=== PATIENT | female | born 1980 | race Caucasian/White ===

== ENCOUNTER 2021-07-28 08:18 | Outpatient (CLI) | payer OTHER, BC, SELFPAY ==
--- NOTE | ~2021-07-28 | MM_ITS ---
EXAMINATION: MM scrn [place] implant BI w je HISTORY: Screening mammogram TECHNIQUE: Craniocaudal and mediolateral oblique 3-D tomosynthesis images with implant displacement a nd synthetic 2-D images were generated. Craniocaudal and mediolateral oblique views of the breasts wi thout implant displacement were obtained using full field digital mammography. CAD analysis was submi tted and interpreted. COMPARISON: No prior mammogram is available for comparison at this institution. BREAST PARENCHYMAL COMPOSITION: There are scattered areas of fibroglandular density. FINDINGS: There is no evidence of suspicious mass, calcification, or architectural distortion to sugg est malignancy in either breast. There has been no suspicious interval change. IMPRESSION: 1. No mammographic evidence of malignancy. 2. Recommend routine screening mammography in one year. BI-RADS Category 1: Negative Reviewed, dictated and finalized at location A. Y LEVEL TRUCK DRIVER
== END 2021-07-28 08:19 | disposition home or self-care (01) ==
PROVIDERS: PCP Family Medicine; Visit Provider Obstetrics & Gynecology
DX: Z12.31 Encounter for screening mammogram for malignant neoplasm of breast (principal)
CPT/HCPCS: 77063; 77067

== ENCOUNTER 2022-04-01 15:09 | Outpatient (NON) | payer OTHER, BC, SELFPAY ==
[2022-04-01 15:49] LABS: IFOB Positive Control Positive; Immunochemical Fecal Occult Bl Negative (N)
== END 2022-04-01 15:10 | disposition home or self-care (01) ==
PROVIDERS: PCP Family Medicine; Visit Provider Family Medicine
DX: Z12.11 Encounter for screening for malignant neoplasm of colon (principal)
CPT/HCPCS: 82274

== ENCOUNTER 2022-06-26 10:30 | Emergency (ER) | payer OTHER, BC, SELFPAY ==
[2022-06-26 10:55] VITALS: BP 119/80; PULSE 89; RESP 16; TEMP 36.7; O2SAT 100
--- NOTE | 2022-06-26 11:56 | ED.URI ---
HPI - URI/Sore Throat General Chief Complaint: Upper Respiratory Infection Stated Complaint: cough,richard,chest tightness,fever Time Seen by Provider: 06/26/22 11:56 Source: patient and RN notes reviewed Mode of arrival: ambulatory Limitations: no limitations History of Present Illness MD elicited complaint: cough and nasal congestion Related Data Home Medications Medication Instructions Recorded Confirmed metformin 500 mg tablet,extended 500 mg PO BID 03/24/22 06/26/22 release 24hr spironolactone 50 mg tablet 50 mg PO DAILY 03/24/22 06/26/22 clindamycin phosphate 1 % topical 1 applic topical DIRECTED 06/26/22 06/26/22 solution metoprolol succinate 25 mg 25 mg PO DAILY 06/26/22 06/26/22 tablet,extended release 24 hr Allergies Allergy/AdvReac Type Severity Reaction Status Date / Time cefadroxil Allergy Severe Hives Verified 06/26/22 11:51 sulfamethoxazole Allergy Intermediate HIVES Verified 06/26/22 11:51 trimethoprim Allergy Intermediate HIVES Verified 06/26/22 11:51 Review of Systems Review of Systems: CONSTITUTIONAL: Reports malaise, chills, sweats, or fever. EYES: Denies visual changes, redness, or discharge. ENT: Reports rhinorrhea, congestion, sinus pain. Denies otalgia and sore throat. CARDIOVASCULAR: Denies chest pain, palpitations, or edema. RESPIRATORY: Reports cough. Denies dyspnea. GASTROINTESTINAL: Denies abdominal pain, nausea, vomiting, diarrhea SKIN: Denies rash or itching. MUSCULOSKELETAL: Reports myalgia. NEUROLOGIC: Denies headache. 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 no fibrosis. Family History Family History Father Carcinoma of colon Mother Family history of malignant neoplasm of breast in first degree relative Social History Social History Smoking status: Never smoker Alcohol intake: current Comments At time of signature, agree with nursing past medical, surgical, social and family history. There is no relevant family history pertinent to the presenting complaint Exam Narrative: GENERAL: Well-appearing, well-nourished, and in no acute distress. HEAD: Normocephalic EYES: PERRLA, conjunctivae clear ENT: Nares clear, turbinates edematous and erythematous, clear discharge. Mucous membranes moist. TM pearly triana with dull light reflex bilaterally; no tragal tenderness. Oropharynx not erythematous without lesions. Tonsils not enlarged and without exudate, no drooling, no hoarseness, no trismus, uvula midline. NECK: Supple. No lymphadenopathy CHEST: Clear to auscultation, breath diminished in the bases. No wheezing, rhonchi, rales, or stridor. No respiratory distress, speaks in full sentences. HEART: Regular rate and rhythm. No murmur heard. SKIN: Warm, dry, no rash. NEURO: Alert and oriented x3. PSYCH: Normal mood and affect Course Course Emergency Course: Patient is aware of diagnosis, understands and agrees to treatment plan. Anticipatory guidance given. Patient agrees to follow-up as directed and is aware of reasons to seek care at the emergency department. Portions of this record may have been created with voice recognition software Level of Care: Express Care Visit Vital Signs Vital signs: Vital Signs Temperature 98.1 F 06/26/22 10:55 Pulse Rate 89 06/26/22 10:55 Respirat
== END 2022-06-26 12:14 | disposition home or self-care (01) ==
PROVIDERS: Emergency Provider Nurse Practitioner; PCP Family Medicine
DX: J10.1 Influenza due to other identified influenza virus with other respiratory manifestations (principal); R06.89 Other abnormalities of breathing; E66.9 Obesity, unspecified; Z68.32 Body mass index [BMI] 32.0-32.9, adult; G47.33 Obstructive sleep apnea (adult) (pediatric); Z96.642 Presence of left artificial hip joint
CPT/HCPCS: 87804; 99213; G0463

== ENCOUNTER 2022-06-30 11:27 | Emergency (ER) | payer OTHER, BC, SELFPAY ==
[2022-06-30] VITALS (8 sets, daily range): BP systolic 113–127; BP diastolic 74–89; PULSE 66; RESP 18; TEMP 36.2; O2SAT 99–100
--- NOTE | ~2022-06-30 | XR_ITS ---
EXAMINATION: XR chest 2V 06/30/2022 12:00 INDICATION: Productive cough PROCEDURE: PA and lateral views of the chest COMPARISON: 09/10/2005. FINDINGS: The lungs are clear. The cardiomediastinal silhouette is within normal limits. There are no pleural effusions. There is no pneumothorax suspected. There is levoscoliosis of the upper thora cic spine. IMPRESSION: 1: NO ACUTE CARDIOPULMONARY DISEASE. Reviewed, dictated and finalized at location A. NG MACHINE FEEDER
--- NOTE | 2022-06-30 11:57 | ECG_ITS ---
Measurements Intervals [place] Rate: 67 P: -10 MO: 127 QRS: 140 QRSD: 112 T: 75 QT: 406 QTc: 429 Interpretive Statements SINUS RHYTHM LIMB LEAD REVERSAL INCOMPLETE RIGHT BUNDLE BRANCH BLOCK LOW QRS VOLTAGE IN LIMB LEADS BORDERLINE ST-T WAVE ABNORMALITY- INFERIOR LEADS BORDERLINE ECG NO PREVIOUS ECG AVAILABLE FOR COMPARISON Electronically Signed On 06-30-2022 14:08:37 [employer] SPRINK[employer] APPARATUS INSPECTOR by Arnoldo Amaya D.O.
--- NOTE | 2022-06-30 12:31 | ED.GENADULT ---
HPI - General Adult General Chief complaint: Shortness of Breath/Dyspnea Stated complaint: SOB- Flu A positive Time Seen by Provider: 06/30/22 11:56 History of Present Illness HPI narrative: This is a 41-year-old female presenting ED with chief complaint of flu-like symptoms and chest pain. Patient was diagnosed with flu a on Wednesday. Since then she has been taking Motrin, Tylenol and Mucinex. She is given a Z-[place] by her primary care physiatry. She came in today because yesterday she started developing chest pain. She describes as a tightness all of her chest that is nonradiating, 8/10 and constant. She has never experienced pain like this before. It is worse with her cough there are no alleviating factors. Patient's other symptoms include nausea, 2 episodes of diarrhea and decreased oral intake. Patient denies lower extremity edema, history of DVTs recent traumas or surgery. Patient came into the ED because she was concerned about her chest pain and to seek relief from her cough. Related Data Home Medications Medication Instructions Recorded Confirmed metformin 500 mg tablet,extended 500 mg PO BID 03/24/22 06/30/22 release 24hr spironolactone 50 mg tablet 50 mg PO DAILY 03/24/22 06/30/22 metoprolol succinate 25 mg 12.5 mg PO DAILY 06/26/22 06/30/22 tablet,extended release 24 hr Allergies Allergy/AdvReac Type Severity Reaction Status Date / Time cefadroxil Allergy Severe Hives Verified 06/30/22 12:05 sulfamethoxazole Allergy Intermediate HIVES Verified 06/30/22 12:05 trimethoprim Allergy Intermediate HIVES Verified 06/30/22 12:05 Review of Systems Review of Systems: CONSTITUTIONAL: Denies night sweats. EYES: No eye pain ENT: Admits cough CARDIOVASCULAR: Denies palpitations RESPIRATORY: Denies hemoptysis GASTROINTESTINAL: Denies hematemesis GENITOURINARY: Denies hematuria. SKIN: Denies rash MUSCULOSKELETAL: Denies myalgia. NEUROLOGIC: Denies weakness. 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 no fibrosis. Family History Family History Father Carcinoma of colon Mother Family history of malignant neoplasm of breast in first degree relative Social History Social History Smoking status: Never smoker Alcohol intake: current Exam Narrative: APPEARANCE: No apparent distress. Head: atraumatic. TMs and oropharynx are normal EYES: EOMI, NOSE: Atraumatic NECK: Trachea midline RESPIRATORY: No increased rate of breathing, clear to auscultation bilaterally, patient is frequently coughing CARDIOVASCULAR: RRR, no peripheral edema ABDOMINAL: Non-distended MUSCULOSKELETAl: No obvious deformities NEURO: Alert. Moving 4/4 extremities SKIN:: Warm, dry. Normal color PSYCHIATRIC: Normal affect Course Vital Signs Vital signs: Vital Signs Temperature 97.2 F L 06/30/22 11:30 Pulse Rate 66 06/30/22 11:30 Respiratory Rate 18 06/30/22 11:30 Blood Pressure 127/89 06/30/22 11:30 Pulse Oximetry 100 06/30/22 11:30 Oxygen Delivery Room Air 06/30/22 11:30 Temperature 97.2 F L 06/30/22 11:30 Pulse Rate 66 06/30/22 11:30 Respiratory Rate 18 06/30/22 11:30 Blood Pressure 127/89 06/30/22 11:30 Pulse Oximetry 100 06/30/22 11:30 Oxygen Delivery Room Air 06/30/22 12:10 Medical Decision Making MDM Narrative Medical decision making narrative:
[2022-06-30] MEDS: guaiFENesin/DEXTROMETHORPHAN 10 ML UDC PO (13:17)
[2022-06-30] MEDS: ACETAMINOPHEN 500 MG TABLET 1000 MG PO (13:17)
[2022-06-30] MEDS: IBUPROFEN 400 MG TABLET 800 MG PO (13:18)
[2022-06-30] MEDS: SODIUM CHLORIDE 0.9% IV 1,000 ML 999 ML IV CONT (13:18)
[2022-06-30 13:33] LABS: Basophils Percent Auto 0.2 % (0.2-1.2); Eosinophils Percent Auto 0.9 % (0-4.4); Hematocrit 40.2 % (37.0-47.0); Hemoglobin 13.6 g/dL (12.0-15.0); Immature Granulocyte Absolute 0.01 K/mm3 (0.00-0.031); Immature Granulocyte Percent A 0.2 % (0-0.5); Lymphocytes Absolute Auto 1.49 K/mm3 (0.9-3.2); Lymphocytes Percent Auto 31.9 % (18.3-44.2); Mean Corpuscular HGB Conc 33.8 g/dl (32-36); Mean Corpuscular Volume 88.7 fl (80-100); Mean Platelet Volume 10.7 fl (7.4-10.4); Monocytes Absolute Auto 0.3 K/mm3 (0.1-0.6); Neutrophils Absolute Auto 2.8 K/mm3 (1.3-6.7); Neutrophils Percent Auto 60.8 % (45.5-73.1); Platelet Count Result 194 k/mm3 (150-375); Red Blood Count 4.53 M/mm3 (4.2-5.4); Red Cell Distribution Width 13.1 % (11.5-14.5); White Blood Count 4.7 K/mm3 (4.5-10.0)
[2022-06-30 13:44] LABS: Anion Gap 9 mmol/L (8-16); Blood Urea Nitrogen 9 mg/dL (7-17); Calcium 9.1 mg/dL (8.4-10.2); Carbon Dioxide 29 mmol/L (22-30); Chloride 102 mmol/L (98-107); Estimated CRCL calculation 108 ml/min; Estimated Glomerular Filt Rate > 60; Glucose 93 mg/dL (65-110); Magnesium 1.9 mg/dL (1.6-2.3); Potassium 4.5 mmol/L (3.4-5.0); Sodium 140 mmol/L (137-145)
[2022-06-30 13:56] LABS: Troponin I < 0.012 ng/mL (0.000-0.034)
[2022-07-01 00:17] LABS: Glucose Point of Care 87 mg/dl (65-105)
== END 2022-06-30 14:59 | disposition home or self-care (01) ==
PROVIDERS: Emergency Provider Emergency Medicine; PCP Family Medicine
DX: J10.1 Influenza due to other identified influenza virus with other respiratory manifestations (principal); R05.9 Cough, unspecified
CPT/HCPCS: 36415; 71046; 80048; 81025; 82948; 83735; 84484; 85025; 93005; 96360; 99284; A9270; J7030

== ENCOUNTER 2022-11-30 07:42 | Day surgery (SDC) | payer OTHER, SELFPAY ==
[2022-09-02 13:28] VITALS: BMI 33.3
[2022-11-11 10:17] VITALS: BMI 33.1
--- NOTE | 2022-11-25 21:04 | PM.HPGS ---
History of Present Illness History of Present Illness Consent: Risks, benefits, and alternatives have been discussed and questions answered. Patient agrees to proceed with procedure. Chief complaint: Neoplasm Screening and Family History Colon CA Narrative: Moi Estrada is a 41 year old female here for screening for colon cancer. there is a family hx of colon cancerHer father had colon cancer Review of Systems Review of Systems: All systems reviewed & are unremarkable except as noted in HPI and below PMFSH Past Medical History Medical History Hepatitis A antibody positive 4..2014 Hx of echocardiogram 9.2014 normal Hx of sinus tachycardia Menometrorrhagia hysteroscopy/ d & c/endometrial ablation . Obesity GENI (obstructive sleep apnea) Tension headache Surgical History Surgical History History of left hip replacement . History of liver biopsy 11.23.14 MR MRCP focal mild portal inflammation. no fibrosis. Family History Family History Father Carcinoma of colon Mother Family history of malignant neoplasm of breast in first degree relative Social History Social History (Updated 07/08/22 @ 15:11 by Kathleen Norman MA) Smoking status: Never smoker Alcohol intake: current Drinks per week: 2 Alcohol use details: 2X A MONTH Substance use: never Substance use type: does not use Lack of Transportation: No Lack of Food: Never True Current Housing: I Have Housing Concerned About Future Housing: No Difficulty Paying Gas/Electric Bills: No Difficulty Paying for Meds: No Currently Unemployed: No Education: Associate Degree Difficulty w/ Childcare or Family Care: No Living arrangements: with family Spiritual care concerns: No Meds Home Medications and Allergies Home Medications Medication Instructions Recorded Confirmed Type metformin 500 mg tablet,extended 500 mg PO BID 03/24/22 11/11/22 History release 24hr spironolactone 50 mg tablet 25 mg PO DAILY 03/24/22 11/11/22 History metoprolol succinate 25 mg 12.5 mg PO DAILY 06/26/22 11/11/22 History tablet,extended release 24 hr semaglutide 0.25 mg or 0.5 mg (2 0.25 mg subcut WEEKLY 11/11/22 11/11/22 History mg/3 mL) subcutaneous pen injector (Ozempic) Allergies Allergy/AdvReac Type Severity Reaction Status Date / Time cefadroxil Allergy Severe Hives Verified 11/30/22 08:21 sulfamethoxazole Allergy Intermediate HIVES Verified 11/30/22 08:21 trimethoprim Allergy Intermediate HIVES Verified 11/30/22 08:21 Exam Const: General: alert Orientation/consciousness: patient oriented x3 Resp: Auscultation: clear to auscultation bilaterally Cardio: Rhythm: regular rhythm GI: GI Palp: Yes Soft to palpation and No Tenderness to palpation present (GI) Neuro: General: patient oriented x3 Assessment and Plan Assessment and plan (1) Colon cancer screening: Code(s): Z12.11 - Encounter for screening for malignant neoplasm of colon Status: Acute Assessment and Plan: Colonoscopy with possible biopsy or polypectomy or cautery or injection of substances.
[2022-11-30 08:25] VITALS: BP 132/90; PULSE 85; RESP 20; TEMP 36.7; O2SAT 99
[2022-11-30] MEDS: LACTATED RINGERS 1,000 ML 150 ML IV CONT (08:36)
--- NOTE | 2022-11-30 09:16 | WPDANESEPPF ---
Anes - Initial Pre Proc Eval Procedure: Operation Date: 11/30/22 09:30 Proposed Procedures p Screening Colonoscopy - Landon Shields MD Date/Time: 11/30/22 09:16 Surgeon: Landon Shields MD Pre Op Diagnosis: Neoplasm Screening and Family History Colon CA Patient Data Age: 41 Gender: F Height: 1.7 m Weight: 96.3 kg Last Vital Signs Temp 36.7 C 11/30/22 08:25 Pulse 85 11/30/22 08:25 Resp 20 11/30/22 08:25 BP 132/90 11/30/22 08:25 Pulse Ox 99 11/30/22 08:25 O2 Del Method Room Air 11/30/22 08:25 Allergies Allergy/AdvReac Type Severity Reaction Status Date / Time cefadroxil Allergy Severe Hives Verified 11/30/22 08:21 sulfamethoxazole Allergy Intermediate HIVES Verified 11/30/22 08:21 trimethoprim Allergy Intermediate HIVES Verified 11/30/22 08:21 Home Medications Medication Instructions Recorded Confirmed Type metformin 500 mg tablet,extended 500 mg PO BID 03/24/22 11/11/22 History release 24hr spironolactone 50 mg tablet 25 mg PO DAILY 03/24/22 11/11/22 History metoprolol succinate 25 mg 12.5 mg PO DAILY 06/26/22 11/11/22 History tablet,extended release 24 hr semaglutide 0.25 mg or 0.5 mg (2 0.25 mg subcut WEEKLY 11/11/22 11/11/22 History mg/3 mL) subcutaneous pen injector (Ozempic) Patient hx anesthesia problems: none Family hx anesthesia problems: none Results Review: All pre-operative results and documents have been reviewed as part of the pre-operative evaluation. COUNT INCLUDES THE [facility] Past Medical History Medical History Hepatitis A antibody positive 4..2014 Hx of echocardiogram 9.2014 normal Hx of sinus tachycardia Menometrorrhagia hysteroscopy/ d & c/endometrial ablation 11. Obesity GENI (obstructive sleep apnea) Tension headache Surgical History Surgical History History of left hip replacement 01.06.2022 History of liver biopsy 4.24.15 MR MRCP focal mild portal inflammation. no fibrosis. Family History Family History Father Carcinoma of colon Mother Family history of malignant neoplasm of breast in first degree relative Social History Social History Smoking status: Never smoker Alcohol intake: current Drinks per week: 2 Alcohol use details: 2X A MONTH Substance use: never Substance use type: does not use Lack of Transportation: No Lack of Food: Never True Current Housing: I Have Housing Concerned About Future Housing: No Difficulty Paying Gas/Electric Bills: No Difficulty Paying for Meds: No Currently Unemployed: No Education: Associate Degree Difficulty w/ Childcare or Family Care: No Living arrangements: with family Spiritual care concerns: No Anes - Eval Final PreProcedure Day of Procedure 11/30/22 09:16 Patient weight: obese Heart: regular rate and rhythm Lungs: clear to auscultation Airway: Mallampati scale class II Neurological: alert and oriented Last oral intake: >/= 8 hours ASA classification: III Emergent: no Anesthetic plan: proceed Anesthesia type and monitoring: general GIVS and standard monitoring Results Review: All pre-operative results and documents have been reviewed as part of the pre-operative evaluation. Informed Consent: The patient's anesthetic plan and its attendant risks and benefits were discussed with the patient/family/POA. Questions were solicited and answers provided to the satisfaction of the patient/family/POA.
[2022-11-30 09:41] VITALS: BP 106/74; PULSE 80; RESP 18; O2SAT 100
[2022-11-30 09:51] VITALS: BP 106/71; PULSE 98; RESP 18; O2SAT 98
--- NOTE | 2022-11-30 09:52 | WPDANESPN ---
Anes - Prog Note Post-Op Date/Time: 11/30/22 09:52 Cardiovascular status: normal Respiratory status: normal Airway patency: baseline Mental status: baseline Post-Op hydration status: normal Vital Signs: Last Vital Signs Temp 36.7 C 11/30/22 08:25 Pulse 85 11/30/22 08:25 Resp 20 11/30/22 08:25 BP 132/90 11/30/22 08:25 Pulse Ox 99 11/30/22 08:25 O2 Del Method Room Air 11/30/22 08:25 Pain Score (VAS): 0 I/O: Intake & Output 11/29/22 11/30/22 11/30/22 23:59 07:59 15:59 Intake Total 500 Balance 500 Patient Feedback: Patient satisfied with anesthetic care.
[2022-11-30 10:01] VITALS: BP 109/65; PULSE 81; RESP 18; O2SAT 100
== END 2022-11-30 10:15 | disposition home or self-care (01) ==
PROVIDERS: PCP Family Medicine; Visit Provider Internal Medicine Gastroenterology
PROC: 0DJD8ZZ Inspection of Lower Intestinal Tract, Via Natural or Artificial Opening Endoscopic (ICD-10-PCS; CPT 45378; principal; 2022-11-30 09:30)
DX: Z12.11 Encounter for screening for malignant neoplasm of colon (principal)
CPT/HCPCS: 45378

== ENCOUNTER 2023-01-29 08:28 | Outpatient (CLI) | payer OTHER, SELFPAY ==
[2023-01-29 09:58] LABS: Basophils Percent Auto 0.6 % (0.2-1.2); Eosinophils Absolute Auto 0.1 K/mm3 (0-0.3); Eosinophils Percent Auto 0.9 % (0-4.4); Hematocrit 40.2 % (37.0-47.0); Hemoglobin 13.2 g/dL (12.0-15.0); Immature Granulocyte Absolute 0.02 K/mm3 (0.00-0.031); Immature Granulocyte Percent A 0.3 % (0-0.5); Lymphocytes Absolute Auto 1.77 K/mm3 (0.9-3.2); Lymphocytes Percent Auto 26.7 % (18.3-44.2); Mean Corpuscular HGB Conc 32.8 g/dl (32-36); Mean Corpuscular Hemoglobin 30.3 pg (26-34); Mean Corpuscular Volume 92.2 fl (80-100); Mean Platelet Volume 10.8 fl (7.4-10.4); Monocytes Absolute Auto 0.5 K/mm3 (0.1-0.6); Monocytes Percent Auto 7.7 % (2.6-8.5); Neutrophils Absolute Auto 4.2 K/mm3 (1.3-6.7); Neutrophils Percent Auto 63.8 % (45.5-73.1); Platelet Count Result 246 k/mm3 (150-375); Red Blood Count 4.36 M/mm3 (4.2-5.4); Red Cell Distribution Width 12.9 % (11.5-14.5); White Blood Count 6.6 K/mm3 (4.5-10.0)
== END 2023-01-29 08:29 | disposition home or self-care (01) ==
LOC: ANHSURGERY 08:32
PROVIDERS: PCP Family Medicine; Visit Provider Obstetrics & Gynecology
DX: N92.0 Excessive and frequent menstruation with regular cycle (principal)
CPT/HCPCS: 36415; 85025; 86850; 86900; 86901

== ENCOUNTER 2023-02-05 01:38 | Day surgery (SDC) | payer OTHER, SELFPAY ==
[2023-01-27 15:06] VITALS: BMI 32.5
--- NOTE | 2023-01-27 15:17 | PC.NURSE ---
Report to the Outpatient Waiting Room, entrance under the green pavilion located off [facility], at 0600 on 02/05/23. Planned Procedure Time: 0730. Time changes happen often and if your time is changed the preop area will call you the afternoon before. - You and your visitor will be asked to self-screen and do not enter if you have any COVID symptoms. - A mask is optional within the hospital at this time. Patients may have clear liquids (water, carbonated beverages, clear teas, apple juice) until 3 hours prior to surgery with a maximum of 20 ounces. - No food from midnight until time of surgery Take the following medications with a SIP of water the morning of surgery: Metoprolol DO NOT STOP ANY OF YOUR OTHER PRESCRIPTION MEDICATIONS PRIOR TO SURGERY ?EXCEPT THE FOLLOWING Medications to discontinue per physician Ozempic 10 days prior to surgery Date to take last dose 01/24/23. Please no make-up, nail belarusian, hairspray, perfume, deodorant, or body powder the day of surgery. No jewelry (including any body piercings) or valuables the day of surgery, leave them at home. Please take a shower or bath the night before, or the morning of, surgery with an antibacterial soap. Wear comfortable, loose fitting clothing. - Jewelry must be removed prior to entering the operating room. Rings and piercings that are not removed may be cut off. - The hospital will not accept responsibility for valuables. - Please leave all valuables, including medications, at home the day of surgery. If you are going home after surgery, a licensed trolley coach driver must drive you home. - NO public transportation without another adult if you receive anesthesia. - We recommend that an adult stay with you for 24 hours following discharge. - We also recommend that you do not drive, make important decision, drink alcoholic beverages, or take any drugs that were not prescribed by your health care provider for at least 24 hours after your discharge time. Follow any additional instructions given to you from your surgeon. If you or anyone in your household have experienced Covid symptoms in the past week, please notify your surgeon or the nurse liaison at the phone number below for possible testing. Telephone instructions given to patient and asked if any additional questions and then verbalized understanding. Patient advised to call surgeon office or pre surgery nurse liaison [phone] if any additional questions.
--- NOTE | 2023-02-01 11:41 | PM.IMHP ---
H&P: HPI History of Present Illness Date/Time: 02/01/23 11:41 Chief Complaint: Pelvic pain/failed ablation Narrative: This 42-year-old female status post ablation and tubal ligation admitted for robotic hysterectomy and bilateral salpingectomy secondary to continued irregular bleeding. As noted she had a failed ablation. Risks and benefits of the procedure reviewed including exclusive of , aspiration minute, bleeding, transfusion, perforation injury to bowel, bladder, ureters, or other internal organs with need for open laparotomy. She received the ACOG handout entitled hysterectomy as well as advance [place]. She had all questions answered. She asked to proceed. [facility] Past Medical History Medical History Hepatitis A antibody positive 4..2014 Hx of echocardiogram .2014 normal Hx of sinus tachycardia Menometrorrhagia hysteroscopy/ d & c/endometrial ablation 11 Obesity GENI (obstructive sleep apnea) Tension headache Surgical History Surgical History History of left hip replacement 01.06.2022 History of liver biopsy 11.23.14 MR MRCP focal mild portal inflammation. no fibrosis. Family History Family History Father Carcinoma of colon Mother Family history of malignant neoplasm of breast in first degree relative Social History Social History Smoking status: Never smoker Second hand tobacco smoke exposure: No Alcohol intake: current Drinks per week: 1 Alcohol use details: 2X A MONTH Substance use: never Substance use type: does not use Lack of Transportation: No Lack of Food: Never True Current Housing: I Have Housing Concerned About Future Housing: No Difficulty Paying Gas/Electric Bills: No Difficulty Paying for Meds: No Currently Unemployed: No Education: Associate Degree Difficulty w/ Childcare or Family Care: No Living arrangements: with family Spiritual care concerns: No Meds Home Medications and Allergies Home Medications Medication Instructions Recorded Confirmed Type metformin 500 mg tablet,extended 500 mg PO BID 03/24/22 01/27/23 History release 24hr spironolactone 50 mg tablet 25 mg PO DAILY 03/24/22 01/27/23 History metoprolol succinate 25 mg 12.5 mg PO DAILY 11/25/22 06/28/23 History tablet,extended release 24 hr semaglutide 0.25 mg or 0.5 mg (2 0.5 mg subcut WEEKLY 11/11/22 01/27/23 History mg/3 mL) subcutaneous pen injector (Ozempic) Allergies Allergy/AdvReac Type Severity Reaction Status Date / Time cefadroxil Allergy Severe Hives Verified 01/27/23 15:01 sulfamethoxazole Allergy Intermediate HIVES Verified 01/27/23 15:01 trimethoprim Allergy Intermediate HIVES Verified 01/27/23 15:01 Exam Const: General: cooperative, healthy appearing and comfortable Nutritional Appearance: average body habitus Orientation/consciousness: oriented to person, oriented to place and oriented to time Resp: Effort & Inspection: normal respiratory effort Cardio: Rate: regular rate Rhythm: regular rhythm Heart sounds: S1 normal heart sound present and S2 normal heart sound present GI: Inspection: normal to inspection : External Female Exam: normal external appearance Speculum Exam - Vagina: normal appearance of the vagina Speculum Exam - Cervix: normal appearance of the cervix Bimanual exam- vagina & uterus: enlarged Bimanual Exam- Adnexa, other: normal adnexae Assessment and Plan Assessment and plan (1) Vaginal bleeding: Code(s): N93.9 - Abnormal uterine and vaginal bleeding, unspecified Status: Acute Plan Robotic hysterectomy with bilateral salpingectomy
--- NOTE | 2023-02-04 12:57 | WPDANESEPPF ---
Anes - Initial Pre Proc Eval Procedure: Operation Date: 02/05/23 07:30 Proposed Procedures p Robotic Assisted Total Vaginal Hysterectomy with Bilateral Salpingectomy - Hector Barrett MD Date/Time: 02/04/23 12:57 Surgeon: Hector Barrett MD Pre Op Diagnosis: Failed Ablation, Heavy Bleeding,Pain, Dyspareunia Patient Data Age: 42 Gender: F Height: 1.7 m Weight: 94.35 kg Allergies Allergy/AdvReac Type Severity Reaction Status Date / Time cefadroxil Allergy Severe Hives Verified 02/05/23 06:26 sulfamethoxazole Allergy Intermediate HIVES Verified 02/05/23 06:26 trimethoprim Allergy Intermediate HIVES Verified 02/05/23 06:26 Home Medications Medication Instructions Recorded Confirmed Type metformin 500 mg tablet,extended 500 mg PO BID 03/24/22 02/05/23 History release 24hr spironolactone 50 mg tablet 25 mg PO DAILY 03/24/22 02/05/23 History metoprolol succinate 25 mg 12.5 mg PO DAILY 06/26/22 02/05/23 History tablet,extended release 24 hr semaglutide 0.25 mg or 0.5 mg (2 0.5 mg subcut WEEKLY 11/11/22 02/05/23 History mg/3 mL) subcutaneous pen injector (Ozempic) hydrocodone 5 mg-acetaminophen 325 1 tablet PO Q4H PRN pain #30 tabs 02/05/23 Rx mg tablet Patient hx anesthesia problems: none Family hx anesthesia problems: none Results Review: All pre-operative results and documents have been reviewed as part of the pre-operative evaluation. COUNTS INCLUDE 234 BEDS AT THE [facility] Past Medical History Medical History Hepatitis A antibody positive 4..2014 Hx of echocardiogram .2014 normal Hx of sinus tachycardia Menometrorrhagia hysteroscopy/ d & c/endometrial ablation 06.09.2019 Obesity GENI (obstructive sleep apnea) Tension headache Surgical History Surgical History History of left hip replacement . History of liver biopsy 11.23.14 MR MRCP focal mild portal inflammation. no fibrosis. Family History Family History Father Carcinoma of colon Mother Family history of malignant neoplasm of breast in first degree relative Social History Social History Smoking status: Never smoker Second hand tobacco smoke exposure: No Alcohol intake: current Drinks per week: 1 Alcohol use details: 2X A MONTH Substance use: never Substance use type: does not use Lack of Transportation: No Lack of Food: Never True Current Housing: I Have Housing Concerned About Future Housing: No Difficulty Paying Gas/Electric Bills: No Difficulty Paying for Meds: No Currently Unemployed: No Education: Associate Degree Difficulty w/ Childcare or Family Care: No Living arrangements: with family Spiritual care concerns: No Anes - Eval Final PreProcedure Day of Procedure 02/04/23 12:57 Patient weight: obese Heart: regular rate and rhythm Lungs: clear to auscultation Airway: Mallampati scale class II Neurological: alert and oriented Last oral intake: >/= 8 hours ASA classification: II Emergent: no Anesthetic plan: proceed Anesthesia type and monitoring: general ETT and standard monitoring Results Review: All pre-operative results and documents have been reviewed as part of the pre-operative evaluation. Informed Consent: The patient's anesthetic plan and its attendant risks and benefits were discussed with the patient/family/POA. Questions were solicited and answers provided to the satisfaction of the patient/family/POA.
[2023-02-05] VITALS (12 sets, daily range): BP systolic 81–117; BP diastolic 41–82; PULSE 55–84; RESP 11–18; TEMP 36–36.9; O2SAT 97–100
--- NOTE | 2023-02-05 06:25 | WPDHPUPDATE1 ---
History and Physical Update Update Date/Time: 02/05/23 06:25 History and Physical has been reviewed, including an updated exam of the patient. There are NO changes in the patient's condition. Risks, benefits, and alternatives have been discussed and questions answered. Patient agrees to proceed with procedure.
--- NOTE | 2023-02-05 06:26 | WPDHPUPDATE1 ---
History and Physical Update Update Date/Time: 02/05/23 06:26 History and Physical has been reviewed, including an updated exam of the patient. There are NO changes in the patient's condition. Risks, benefits, and alternatives have been discussed and questions answered. Patient agrees to proceed with procedure.
[2023-02-05] MEDS: KETOROLAC 15 MG/ML VIAL (*BKC) IV PUSH (06:45)
[2023-02-05] MEDS: LACTATED RINGERS 1,000 ML 30 ML IV CONT ×2 (06:45→08:40)
[2023-02-05] MEDS: ACETAMINOPHEN 500 MG TABLET 1000 MG PO (06:45)
[2023-02-05] MEDS: CLINDAMYCIN 900 MG/D5W 50 ML 900 MG/50 ML PIGGYBACK 50 MG IVPB (07:24)
[2023-02-05] MEDS: GENTAMICIN SULFATE INJ 370 MG in DEXTROSE 5% 100 ML 109.25 MG IVPB (07:24)
--- NOTE | 2023-02-05 08:27 | P.OP_ITS ---
Procedure Note - Detailed Date of Procedure 02/05/23 Pre-op Diagnosis Failed Ablation, Heavy Bleeding,Pain, Dyspareunia Post-op Diagnosis Same Procedure Performed Robotic total vaginal hysterectomy and bilateral salpingectomy Surgeon Hector Barrett MD Anesthesia General Indications is a 42-year-old female with pelvic pain failed ablation Findings enlarged uterus. Normal-appearing ovaries and tubes. Description of Procedure Patient was prepped draped in sterile fashion placed in the dorsal lithotomy position. Under excellent general trach anesthesia weighted speculum placed in posterior fornix vagina. Anterior lip of the cervix grasped with single-tooth tenaculum. Uterus sounded to 10cm. Serial dilatation with fragmented dilators performed followed by passage of the 8. ANA and the 3. 0.5 cold cup. Next the 16 Occitan catheter placed in bladder draining clear urine. The weighted speculum was removed and gloves were changed. A supraumbilical incision made the Veress needle passed in the abdomen. Abdomen filled with CO2 gas to 15mm Hg. The 8mm trocar advanced in the abdomen. Downside visualized no injury seen. Patient placed in Trendelenburg 20? and right left lateral quadrant incision made. 8Mm trocars advanced under direct visualization assuring no injury. Right upper quadrant incision made the 8mm trocar advanced under direct visualization assuring but was docked. Attention was turned to the console. The left round ligament grasped, burned, cut. Anterior bladder flap was formed by sharply dissecting the peritoneum and reflecting the bladder caudally away from the cervix uterus the opposite round ligament which was clamped, burned, cut. Next the left fallopian tube was sharply dissected away from the ovarian complex and left attached to the uterine origin. The right up tube was treated as well by leaving the it attached to its uterine origin and excising it from the ovarian complex. Next the left utero- ovarian ligament was skeletonized clamping burning cutting and bringing this to level of previously cut round ligament to conserve the left ovary. Conserving the right ovary, the utero-ovarian ligament was clamped, burned, cut brought the level previously cut round ligament. Cardinal broad ligaments were then serially skeletonized clamping burning and cutting hugging the cervix and uterus and to the large tortuous uterine vessels could be seen on the left. These were individually clamped, burned, cut. In like fashion the cardinal broad ligaments on the right were serially skeletonized clamping burning cutting and hugging the cervix and uterus until the large tortuous vessels on the right were seen. These were individually clamped, burned, cut. Blanching of the uterus was noted a colpotomy incision made. Cervix uterus and tubes removed through the vagina. Vagina was then closed with continuous running 0V lock from lateral edge to lateral edge back to the midline. Irrigation undertaken until clear no other abnormalities were seen. The instruments removed and the robot was undocked after were of. The trocars removed after gas removed from the abdomen the incisions closed with 4 Monocryl for. Patient was awakened went to recovery in satisfactory condition. All sponge, needle, instrument counts were correct. There were no immediate complications Estimated Blood Loss 25 Drains No Packing No Pathology Yes Complications No immediate complications Condition Stable Disposition PACU
[2023-02-05] MEDS: fentaNYL CITRATE INJ (*CRX) 100 MCG/2 ML VIAL 25 MCG IV PUSH ×7 (08:55→09:36)
--- NOTE | 2023-02-05 09:55 | PC.NURSE ---
This patient, Moi Estrada, was received from PACU via bed on 02/05/23 at 0955. Patient oriented to unit policies and routines.
[2023-02-05] MEDS: DEXTROSE 5%/LACTATED RINGERS 1,000 ML 125 ML IV CONT (10:52)
[2023-02-05] MEDS: KETOROLAC 30 MG/ML VIAL (*BKC) IV PUSH (10:58)
[2023-02-05] MEDS: ONDANSETRON INJ 4 MG/2 ML VIAL IV PUSH ×2 (10:59→17:46)
--- NOTE | 2023-02-05 14:08 | PM.DS ---
DS: Admitting Diagnosis Discharge Date 02/06/2023 Admitting Diagnosis vaginal bleeding DS: Discharge Diagnosis Discharge Diagnosis (1) Vaginal bleeding: Code(s): N93.9 - Abnormal uterine and vaginal bleeding, unspecified Status: Acute DS: Summary Hospital Course Reason for hospitalization: patient was admitted on for robotic total salpingectomy Hospital Course: patient robotic salpingectomy hospital course was. She she was up without eating regular diet ambulating, generally without complaints Time Spent with Patient Time attestation: Total time spent providing and/or coordinating discharge services: Exam Const: General: cooperative, healthy appearing and comfortable Orientation/consciousness: oriented to person, oriented to place and oriented to time HENMT: Head: normal to inspection Resp: Effort & Inspection: normal respiratory effort Cardio: Rate: regular rate Rhythm: regular rhythm Heart sounds: S1 normal heart sound present and S2 normal heart sound present GI: Inspection: normal to inspection and incision ( wounds are clean dry and intact) DS: Data Data Completed and Pending Pending studies at discharge: Pending at discharge 02/05/23 08:03 Surgical [PTH] Routine Discharge Plan Discharge Patient Disposition: Home, Self-Care Stand Alone Forms: General Discharge Instructions Follow-up/Referrals: Hector Carreon MD [Physician] - Discharge Medications: New hydrocodone-acetaminophen 5-325 mg tablet 1 tablet PO Q4H PRN (Reason: pain) Qty: 30 0RF No Action metoprolol succinate 25 mg tablet extended release 24 hr 12.5 mg PO DAILY spironolactone 50 mg tablet 25 mg PO DAILY metformin 500 mg tablet extended release 24hr 500 mg PO BID Patient Comments: TAKES FOR PCOS Ozempic 0.25 mg or 0.5 mg (2 mg/3 mL) Pen Injector 0.5 mg SUBCUT WEEKLY Patient Comments: takes for weight loss and pcos-takes on Sundays Rx Instructions: for 4 weeks
[2023-02-05] MEDS: HYDROcodone/acetaminophen (*CRX) 5-325 MG TABLET 1 TAB PO ×4 (14:58→23:36)
[2023-02-05] MEDS: DOCUSATE SODIUM 100 MG CAPSULE PO (16:55)
[2023-02-05] MEDS: IBUPROFEN 600 MG TABLET PO ×2 (17:46→23:37)
[2023-02-06 04:50] VITALS: BP 82/58; PULSE 66; RESP 16; TEMP 36.8; O2SAT 100
[2023-02-06 05:06] LABS: Basophils Percent Auto 0.1 % (0.2-1.2); Eosinophils Percent Auto 0.1 % (0-4.4); Hemoglobin 12.3 g/dL (12.0-15.0); Immature Granulocyte Absolute 0.02 K/mm3 (0.00-0.031); Immature Granulocyte Percent A 0.3 % (0-0.5); Lymphocytes Absolute Auto 1.63 K/mm3 (0.9-3.2); Lymphocytes Percent Auto 24.3 % (18.3-44.2); Mean Corpuscular HGB Conc 33.2 g/dl (32-36); Mean Corpuscular Hemoglobin 30.8 pg (26-34); Mean Corpuscular Volume 92.5 fl (80-100); Mean Platelet Volume 10.6 fl (7.4-10.4); Monocytes Absolute Auto 0.5 K/mm3 (0.1-0.6); Monocytes Percent Auto 7.7 % (2.6-8.5); Neutrophils Absolute Auto 4.5 K/mm3 (1.3-6.7); Neutrophils Percent Auto 67.5 % (45.5-73.1); Platelet Count Result 219 k/mm3 (150-375); Red Cell Distribution Width 13.2 % (11.5-14.5); White Blood Count 6.7 K/mm3 (4.5-10.0)
[2023-02-06] MEDS: HYDROcodone/acetaminophen (*CRX) 5-325 MG TABLET 1 TAB PO (05:36)
[2023-02-06] MEDS: IBUPROFEN 600 MG TABLET PO (05:36)
--- NOTE | 2023-02-06 06:56 | WPDANESPN ---
Anes - Prog Note Post-Op Date/Time: 02/06/23 06:56 Cardiovascular status: normal Respiratory status: normal Airway patency: baseline Mental status: baseline Post-Op hydration status: normal Vital Signs: Last Vital Signs Temp 36.8 C 02/06/23 04:50 Pulse 66 02/06/23 04:50 Resp 16 02/06/23 04:50 BP 82/58 L 02/06/23 04:50 Pulse Ox 100 02/06/23 04:50 O2 Del Method Room Air 02/05/23 09:40 O2 Flow Rate 6 02/05/23 08:55 Pain Score (VAS): 2 I/O: Intake & Output 02/05/23 02/05/23 02/06/23 15:59 23:59 07:59 Intake Total 559.25 2250 120 Output Total 40 2150 950 Balance 519.25 100 -830 Laboratory Tests 02/06/23 04:53 02/06/23 04:53 WBC 6.7 RBC 4.00 L Hgb 12.3 Hct 37.0 MCV 92.5 MCH 30.8 MCHC 33.2 RDW 13.2 Plt Count 219 MPV 10.6 H Immature Gran % (Auto) 0.3 Neut % (Auto) 67.5 Lymph % (Auto) 24.3 [place] % (Auto) 7.7 Eos % (Auto) 0.1 Baso % (Auto) 0.1 L Lymph # (Auto) 1.63 [facility] # (Auto) 0.5 Eos # (Auto) 0.0 Baso # (Auto) 0.0 Abs Immat Gran (auto) 0.02 Absolute Neuts (auto) 4.5 Absolute Nucleated RBC 0.0 Nucleated RBC % 0.0 Post-procedural complaints: none Patient Feedback: Patient satisfied with anesthetic care.
--- NOTE | 2023-02-06 07:17 | PM.GYNPNOP ---
OBSERVER HELPER - A/P Postoperative Procedures: Procedures Operation Date: 02/05/23 07:30 Actual Procedure Side Surgeon p Robotic Assisted Total Vaginal Hysterectomy with Bilateral Salpingectomy Bilateral Hector Barrett MD Postoperative day: 1 Postoperative status: doing well Postoperative plan: routine post-op care, see orders and discharge Time Spent With Patient Time: Total time spent is greater than 50% in coordination of care (as documented) at patient's floor/unit and/or counseling patient: Time with patient: less than 15 minutes OBSERVER HELPER- PN:Subj Post-Op Subjective Date/time seen: 02/06/23 07:17 Subjective: patient has no complaints, patient desires discharge and patient is tolerating oral intake Exam Const: General: cooperative, healthy appearing and comfortable Nutritional Appearance: average body habitus Orientation/consciousness: oriented to person, oriented to place and oriented to time HENMT: Head: normal to inspection Resp: Effort & Inspection: normal respiratory effort Cardio: Rate: regular rate Rhythm: regular rhythm Heart sounds: S1 normal heart sound present and S2 normal heart sound present GI: Inspection: normal to inspection and incision ( incisions are clean dry and intact) OBSERVER HELPER - PN: Obj Data Vital Signs Vital Signs: Vital Signs - 24 hr 02/05/23 08:40 02/05/23 08:44 02/05/23 08:55 Temperature 97.0 F L Pulse Rate 61 57 L 64 Respiratory Rate 11 L 12 12 Blood Pressure 117/70 116/73 113/72 Pulse Oximetry 100 100 100 Oxygen Delivery Simple Face Mask Simple Face Mask Simple Face Mask Oxygen Flow Rate 6 6 6 02/05/23 09:10 02/05/23 09:25 02/05/23 09:40 Temperature Pulse Rate 58 L 57 L 56 L Respiratory Rate 12 12 12 Blood Pressure 115/82 106/75 105/71 Pulse Oximetry 97 99 97 Oxygen Delivery Room Air Room Air Room Air Oxygen Flow Rate 02/05/23 10:05 02/05/23 13:00 02/05/23 16:50 Temperature 96.8 F L 97.9 F 97.8 F Pulse Rate 55 L 62 84 Respiratory Rate 16 18 18 Blood Pressure 111/70 105/68 108/63 Pulse Oximetry 100 100 97 Oxygen Delivery Oxygen Flow Rate 02/05/23 19:30 02/05/23 19:30 02/05/23 23:35 Temperature 98.5 F 98.5 F 98.5 F Pulse Rate 61 61 60 Respiratory Rate 16 16 18 Blood Pressure 94/57 L 94/57 L 81/41 L Pulse Oximetry 99 99 97 Oxygen Delivery Oxygen Flow Rate 02/06/23 04:50 Temperature 98.2 F Pulse Rate 66 Respiratory Rate 16 Blood Pressure 82/58 L Pulse Oximetry 100 Oxygen Delivery Oxygen Flow Rate Intake/Output Intake/Output: Intake & Output 02/03/23 02/04/23 02/05/23 02/06/23 23:59 23:59 23:59 23:59 Intake Total 2809.25 120 Output Total 2190 950 Balance 619.25 -830 Meds/Results Medications: Active Medications Generic Name Dose Route Start Last Admin Trade Name Freq PRN Reason Stop Dose Admin Hydrocodone Bitart/Acetaminophen 1 tab 02/05/23 09:44 Hydrocodone/Acetaminophen (*Crx) 10-325 Mg Tablet PO Q3H PRN Pain Rated 6 or Greater Hydrocodone Bitart/Acetaminophen 1 tab 02/05/23 09:44 02/06/23 05:36 Hydrocodone/Acetaminophen (*Crx) 5-325 Mg Tablet PO 1 tab Q3H PRN Administration Pain Rated 5 or Less Docusate Sodium 100 mg 02/05/23 09:44 02/05/23 16:55 Docusate Sodium 100 Mg Capsule PO 100 mg BID DUC Administration Enoxaparin Sodium 40 mg 02/06/23 07:00 Enoxaparin 40 Mg/0.4 Ml Syringe SUB-Q DAILY [facility] Ibuprofen 600 mg 02/05/23 09:44 02/06/23 05:36 Ibuprofen 600 Mg Tablet PO 600 mg Q6H PRN Administration Cramping Ketorolac Tromethamine 30 mg 02/05/23 09:44 02/05/23 10:58 Ketorolac 30 Mg/Ml Vial (*Bkc) IV PUSH 02/10/23 09:43 30 mg Q6H PRN Administration Pain Rated 4-6 Naloxone HCl 0.1 mg 02/05/23 09:44 Naloxone Hcl 0.4 Mg/Ml Vial IV PUSH Q2M PRN Respiratory rate less than 10 Ondansetron HCl 4 mg 02/05/23 09:44 02/05/23 17:46 Ondansetron Inj 4 Mg/2 Ml Vial IV PUSH 4 mg Q6H PRN Administrat
[2023-02-06 07:30] VITALS: BP 93/69; PULSE 67; RESP 18; TEMP 36.7; O2SAT 97
[2023-02-06] MEDS: DOCUSATE SODIUM 100 MG CAPSULE PO (07:43)
[2023-02-06] MEDS: ENOXAPARIN 40 MG/0.4 ML SYRINGE SUB-Q (07:43)
== END 2023-02-06 08:44 | disposition home or self-care (01) ==
LOC: ANHSURGERY 06:27 → ANHOB2 09:47
PROVIDERS: PCP Family Medicine; Visit Provider Obstetrics & Gynecology
PROC: (CPT 58552; principal; 2023-02-05 07:30)
DX: N92.0 Excessive and frequent menstruation with regular cycle (principal); N94.10 Unspecified dyspareunia; R10.2 Pelvic and perineal pain; N80.201 Endometriosis of right fallopian tube, unspecified depth; N83.8 Other noninflammatory disorders of ovary, fallopian tube and broad ligament; N72 Inflammatory disease of cervix uteri; G47.33 Obstructive sleep apnea (adult) (pediatric); R76.8 Other specified abnormal immunological findings in serum; E66.9 Obesity, unspecified; Z68.32 Body mass index [BMI] 32.0-32.9, adult; Z79.84 Long term (current) use of oral hypoglycemic drugs; Z79.899 Other long term (current) drug therapy
CPT/HCPCS: 58552; S2900; 36415; 85025; 88307; 99199; A9270; J1100; J1170; J1580; J1650; J1885; J2250; J2405; J2704; J3010; J7030; J7120; J7121

== ENCOUNTER 2024-03-27 07:53 | Outpatient (CLI) | payer OTHER, SELFPAY ==
--- NOTE | 2024-03-27 08:11 | ECG_ITS ---
Test Date: 2024-03-27 08:22:44 Measurements Intervals Plover Rate: 65 P: 66 [place]: 170 QRS: 65 QRSD: 107 T: 43 QT: 411 QTc: 428 Interpretive Statements SINUS RHYTHM NORMAL ELECTROCARDIOGRAM No previous ECG available for comparison Electronically Signed On 03-28-2024 07:17:45 CDT by Jason Leyva M.D.
== END 2024-03-27 07:54 | disposition home or self-care (01) ==
PROVIDERS: PCP Family Medicine; Visit Provider Obstetrics & Gynecology
DX: R00.0 Tachycardia, unspecified (principal); N83.209 Unspecified ovarian cyst, unspecified side
CPT/HCPCS: 36415; 86850; 86900; 86901; 93005

== ENCOUNTER 2024-03-30 02:28 | Day surgery (SDC) | payer OTHER, SELFPAY ==
--- NOTE | 2024-03-21 14:06 | SUR.PREOP ---
Report to the Outpatient Waiting Room, entrance under the green pavilion located off [facility], at time ____599___ on date ____03/30/24___. Planned Procedure Time: ____729____. Time changes happen often and if your time is changed the preop area will call you the afternoon before. - You and your visitor will be asked to self-screen and do not enter if you have any COVID symptoms. - A mask is optional within the hospital at this time. Patients may have clear liquids (water, carbonated beverages, clear teas, apple juice) until 3 hours prior to surgery with a maximum of 20 ounces. - NO CLEAR LIQUIDS AFTER 0430 - No food from midnight until time of surgery - Infants may have breast milk until 4 hours before surgery, infant formula 6 hours prior to surgery. - Children will be allowed to drink immediately following surgery. If applicable, please bring a bottle or sippy cup to assist with drinking. Juice, water, soda, and popsicles are readily available. For infants on formula, please bring formula the day of surgery. Pacifiers are allowed. Take the following medications with a SIP of water the morning of surgery: METOPROLOL DO NOT STOP ANY OF YOUR OTHER PRESCRIPTION MEDICATIONS PRIOR TO SURGERY ?EXCEPT THE FOLLOWING Medications to discontinue per physician N/A Date to take last dose Please no make-up, nail chilean, hairspray, perfume, deodorant, or body powder the day of surgery. No jewelry (including any body piercings) or valuables the day of surgery, leave them at home. Please take a shower or bath the night before, or the morning of, surgery with an antibacterial soap. Wear comfortable, loose fitting clothing. Children are encouraged to wear pajamas. - Jewelry must be removed prior to entering the operating room. Rings and piercings that are not removed may be cut off. - The hospital will not accept responsibility for valuables. - Please leave all valuables, including medications, at home the day of surgery. If you are going home after surgery, a licensed lyft driver must drive you home. - NO public transportation without another adult if you receive anesthesia. - We recommend that an adult stay with you for 24 hours following discharge. - We also recommend that you do not drive, make important decision, drink alcoholic beverages, or take any drugs that were not prescribed by your health care provider for at least 24 hours after your discharge time. For Pediatric surgeries, we recommend two adults accompany the child home. Follow any additional instructions given to you from your surgeon. If you or anyone in your household have experienced Covid symptoms in the past week, please notify your surgeon or the nurse liaison at the phone number below for possible testing. Telephone instructions given to DENNYS SERNA and asked if any additional questions and then verbalized understanding. Patient advised to call surgeon office or pre surgery nurse liaison [phone] if any additional questions.
[2024-03-21 14:32] VITALS: BMI 31.2
--- NOTE | 2024-03-28 13:10 | PM.IMHP ---
H&P: HPI History of Present Illness Date/Time: 03/28/24 13:10 Chief Complaint: Complex right ovarian cyst Narrative: This 42-year-old female status post hysterectomy admitted for laparoscopic right ovarian cystectomy and possible right salpingo-oophorectomy secondary to complex right ovarian cyst. She has pain discomfort and dyspareunia and this has been going on for years risks and benefits reviewed including but not exclusive of , aspiration pneumonia, bleeding, transfusion, perforation injury to bowel, bladder, ureters, or other internal organs with need for open laparotomy. She received the A[employer] handout entitled laparoscopy. She had all questions answered. She asked to proceed. [facility] Past Medical History Medical History Hepatitis A antibody positive 4.1.2014 Hx of echocardiogram 9.2014 normal Hx of sinus tachycardia Menometrorrhagia hysteroscopy/ d & c/endometrial ablation 11..2018 Obesity GENI (obstructive sleep apnea) Tension headache Surgical History Surgical History History of left hip replacement 6. History of liver biopsy 11.23.14 MR MRCP focal mild portal inflammation. no fibrosis. Hx of cholecystectomy S/P total hysterectomy and BSO (bilateral salpingo-oophorectomy) .02.21 vaginal Family History Family History Father Carcinoma of colon Mother Family history of malignant neoplasm of breast in first degree relative Social History Social History Smoking status: Never smoker Second hand tobacco smoke exposure: No Alcohol intake: current Drinks per week: 1 Alcohol use details: 2X A MONTH Substance use: never Substance use type: does not use Lack of Transportation: No Lack of Food: Never True Current Housing: I Have Housing Concerned About Future Housing: No Difficulty Paying Gas/Electric Bills: No Difficulty Paying for Meds: No Currently Unemployed: No Education: Associate Degree Difficulty w/ Childcare or Family Care: No Living arrangements: with family Spiritual care concerns: No Meds Home Medications and Allergies Home Medications Medication Instructions Recorded Confirmed Type metformin 500 mg tablet,extended 500 mg PO BID 03/24/22 03/21/24 History release 24hr (osmotic) spironolactone 50 mg tablet 25 mg PO DAILY 03/24/22 03/21/24 History metoprolol succinate 25 mg 25 mg PO DAILY 06/26/22 03/21/24 History tablet,extended release 24 hr cetirizine 10 mg tablet (Zyrtec) 10 mg PO DAILY 03/21/24 03/21/24 History Allergies Allergy/AdvReac Type Severity Reaction Status Date / Time cefadroxil Allergy Severe Hives Verified 03/21/24 13:53 sulfamethoxazole Allergy Intermediate HIVES Verified 03/21/24 13:53 trimethoprim Allergy Intermediate HIVES Verified 03/21/24 13:53 Exam Const: General: cooperative, healthy appearing and comfortable Nutritional Appearance: average body habitus Orientation/consciousness: oriented to person, oriented to place and oriented to time Resp: Effort & Inspection: normal respiratory effort Cardio: Rate: regular rate Rhythm: regular rhythm Heart sounds: S1 normal heart sound present and S2 normal heart sound present GI: Inspection: normal to inspection : External Female Exam: normal external appearance Speculum Exam - Vagina: normal appearance of the vagina Speculum Exam - Cervix: Cervix absent Bimanual exam- vagina & uterus: uterus absent Bimanual Exam- Adnexa, other: tender on the right Assessment and Plan Assessment and plan (1) Pelvic pain: Code(s): R10.2 - Pelvic and perineal pain Status: Acute (2) Right ovarian cyst: Code(s): N83.201 - Unspecified ovarian cyst, right side Status: Acute Plan Laparoscopic right ovarian cystecto
[2024-03-30] VITALS (8 sets, daily range): BP systolic 100–126; BP diastolic 60–84; PULSE 57–78; RESP 12–16; TEMP 36.5–36.7; O2SAT 96–100
--- NOTE | 2024-03-30 05:41 | WPDHPUPDATE1 ---
History and Physical Update Update Date/Time: 03/30/24 05:41 History and Physical has been reviewed, including an updated exam of the patient. There are NO changes in the patient's condition. Risks, benefits, and alternatives have been discussed and questions answered. Patient agrees to proceed with procedure.
--- NOTE | 2024-03-30 06:33 | WPDANESEPPF ---
Anes - Initial Pre Proc Eval Procedure: Operation Date: 03/30/24 07:30 Proposed Procedures p Laparoscopic Right Ovarian Cystectomy, Possible Right Salpingo Oophorectomy - Hector Barrett MD Date/Time: 03/30/24 06:33 Surgeon: Hector Barrett MD Pre Op Diagnosis: pain, right ovarian cyst Patient Data Age: 43 Gender: F Height: 1.7 m Weight: 90.5 kg Allergies Allergy/AdvReac Type Severity Reaction Status Date / Time cefadroxil Allergy Severe Hives Verified 03/21/24 13:53 sulfamethoxazole Allergy Intermediate HIVES Verified 03/21/24 13:53 trimethoprim Allergy Intermediate HIVES Verified 03/21/24 13:53 Home Medications Medication Instructions Recorded Confirmed Type metformin 500 mg tablet,extended 500 mg PO BID 03/24/22 03/21/24 History release 24hr (osmotic) spironolactone 50 mg tablet 25 mg PO DAILY 03/24/22 03/21/24 History metoprolol succinate 25 mg 25 mg PO DAILY 06/26/22 03/21/24 History tablet,extended release 24 hr cetirizine 10 mg tablet (Zyrtec) 10 mg PO DAILY 03/21/24 03/21/24 History hydrocodone 5 mg-acetaminophen 325 1 tablet PO Q4H PRN pain #20 tabs 03/30/24 Rx mg tablet Patient hx anesthesia problems: none Family hx anesthesia problems: none Results Review: All pre-operative results and documents have been reviewed as part of the pre-operative evaluation. 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 Obesity GENI (obstructive sleep apnea) Tension headache Surgical History Surgical History History of left hip replacement 6..2021 History of liver biopsy 4..15 MR MRCP focal mild portal inflammation. no fibrosis. Hx of cholecystectomy S/P total hysterectomy and BSO (bilateral salpingo-oophorectomy) 7.02.21 vaginal Family History Family History Father Carcinoma of colon Mother Family history of malignant neoplasm of breast in first degree relative Social History Social History Smoking status: Never smoker Second hand tobacco smoke exposure: No Alcohol intake: current Drinks per week: 1 Alcohol use details: 2X A MONTH Substance use: never Substance use type: does not use Lack of Transportation: No Lack of Food: Never True Current Housing: I Have Housing Concerned About Future Housing: No Difficulty Paying Gas/Electric Bills: No Difficulty Paying for Meds: No Currently Unemployed: No Education: Associate Degree Difficulty w/ Childcare or Family Care: No Living arrangements: with family Spiritual care concerns: No Anes - Eval Final PreProcedure Day of Procedure 03/30/24 06:33 Patient weight: obese Heart: regular rate and rhythm Lungs: clear to auscultation Airway: Mallampati scale class III Neurological: alert and oriented Last oral intake: >/= 8 hours ASA classification: III Emergent: no Anesthetic plan: proceed Anesthesia type and monitoring: general ETT and standard monitoring Results Review: All pre-operative results and documents have been reviewed as part of the pre-operative evaluation. Informed Consent: The patient's anesthetic plan and its attendant risks and benefits were discussed with the patient/family/POA. Questions were solicited and answers provided to the satisfaction of the patient/family/POA.
[2024-03-30] MEDS: ACETAMINOPHEN 500 MG TABLET 1000 MG PO (07:00)
[2024-03-30] MEDS: KETOROLAC 15 MG/ML VIAL (*BKC) IV PUSH (07:00)
[2024-03-30] MEDS: LACTATED RINGERS 1,000 ML 30 ML IV CONT ×2 (07:00→08:15)
--- NOTE | 2024-03-30 08:00 | W.PM.PROC2 ---
Procedure Note - Detailed Date of Procedure 03/30/24 Pre-op Diagnosis pain, right ovarian cyst Post-op Diagnosis Same Procedure Performed laparoscopic right salpingo-oophorectomy Surgeon Hector Barrett MD Anesthesia General Indications this is a 43-year-old female status post hysterectomy with right ovarian cyst Findings normal-appearing left ovarian. Right ovarian cyst Description of Procedure patient was prepped draped in the sterile fashion placed in dorsal lithotomy position. Under excellent trach anesthesia a sponge stick was placed in vagina. Bladder emptied of clear urine the weighted speculum was removed. Gloves were changed. A supraumbilical incision made the Veress needle passed in the. Abdomen filled with CO2 gas [id number]. The 5mm trocar advanced under direct visualization with the Optiview and no injury seen. Patient placed in Trendelenburg and a suprapubic incision made. The 5mm trocar advanced under direct visualization assuring no injury. A right lower quadrant incision made the 10mm trocar advanced under direct visualization assuring no complex right ovarian cyst was skeletonized spine its infundibulopelvic structure clamped, burned, cut with the LigaSure. This was then placed in the Endo-Catch and removed through the right lower quadrant incision. The left ovary appeared within normal limits. No other abnormalities were seen. The lower site removed. The gas removed from the abdomen. The upper site removed. The incisions closed with 4-0 Monocryl and glue. Patient went went to recovery in satisfactory condition. All sponge, needle, instrument counts were correct. There were no immediate complications noted Estimated Blood Loss 5 Drains No Packing No Pathology Yes Complications No immediate complications Condition Stable Disposition PACU
[2024-03-30] MEDS: fentaNYL CITRATE INJ (*CRX) 100 MCG/2 ML VIAL 25 MCG IV PUSH ×4 (08:36→08:45)
[2024-03-30] MEDS: oxyCODONE HCL (*CRX) 5 MG TAB IR PO (09:15)
== END 2024-03-30 09:46 | disposition home or self-care (01) ==
PROVIDERS: PCP Family Medicine; Visit Provider Obstetrics & Gynecology
PROC: (CPT 49320; principal; 2024-03-30 07:30)
DX: N83.11 Corpus luteum cyst of right ovary (principal); G47.33 Obstructive sleep apnea (adult) (pediatric); Z79.84 Long term (current) use of oral hypoglycemic drugs; E66.9 Obesity, unspecified; Z68.32 Body mass index [BMI] 32.0-32.9, adult
CPT/HCPCS: 58661; 88305; A9270; J0330; J1100; J1885; J2250; J2405; J2704; J3010; J7030; J7120